=== PATIENT | female | born 1980 | race Caucasian/White ===

== ENCOUNTER 2017-10-01 12:47 | Emergency (ER) | payer MEDICAID ==
[2017-10-01 13:25] LABS: APPEARANCE,URINE Cloudy (CLEAR); BILIRUBIN,URINE Negative (NEGATIVE); COLOR,URINE Yellow (YELLOW); GLUCOSE, URINE (UA) Negative (NEGATIVE); KETONES,URINE Negative (NEGATIVE); LEUKOCYTE ESTERASE ,URINE Trace (NEGATIVE); NITRATE,URINE Negative (NEGATIVE); OCCULT BLOOD,URINE Negative (NEGATIVE); PROTEIN,URINE Negative (NEGATIVE); UROBILINOGEN,URINE 0.2 mg/dL (0.2-1.0)
[2017-10-01 13:29] LABS: RAPID GROUP A STREP NEGATIVE (NEGATIVE)
[2017-10-01 13:30] LABS: HCG,QUAL RESULT NEGATIVE (NEGATIVE)
[2017-10-01 13:42] LABS: BACTERIA,URINE Few /HPF (None Seen); MUCUS,URINE Few LPF (None Seen); RBC,URINE None Seen /HPF (0-1); SQUAMOUS EPITHELIAL CELL,UR Few /HPF (0-2); WBC,URINE 0-1 /HPF (0-1)
== END 2017-10-01 14:04 | disposition home or self-care (01) ==
LOC: EDH 12:47
DX: J06.9 Acute upper respiratory infection, unspecified (principal)
CPT/HCPCS: 81001; 81025; 87804; 87880

== ENCOUNTER → 2021-11-15 | Emergency (ER) | payer MEDICAID, MEDICARE ==
[~2021-11-15] VITALS: Ht 152.4 cm; Wt 68.0 kg
[~2021-11-15] MED LIST: IBUP-1552 PO; KETOROLAC 30MG VIAL (30MG/ML) IVP ONE; LACTATED RINGERS 1000ML 1,000 ML IV ONE
[2021-11-15 14:45] LABS: HEMATOCRIT 36.8 % (36-48); MEAN CORPUSCULAR HEMOGLOBIN 29.3 pg (27.0-33.0); MEAN CORPUSCULAR HGB CONC 33.2 g/dL (32.0-36.0); MEAN CORPUSCULAR VOLUME 88.2 fL (79-99); RED BLOOD CELL COUNT(AUTO) 4.17 MIL/uL (4.00-5.50); RED CELL DISTRIBUTION WIDTH 13.3 % (11.0-15.5); WHITE BLOOD COUNT (AUTO) 9.3 K/uL (4.8-10.8)
[2021-11-15 15:05] LABS: ALANINE AMINOTRANSFERASE 20 U/L (12-78); ALBUMIN 3.9 g/dL (3.5-5.0); ASPARTATE AMINOTRANSFERASE 14 U/L (10-37); CARBON DIOXIDE 27 mmol/L (21-32); CHLORIDE 102 mmol/L (101-111); CREATININE 1.1 mg/dL (0.5-1.5); GLOMERULAR FILTR. RATE CALC 58 mL/min (>60); GLUCOSE,RANDOM 120 mg/dL (70-105); POTASSIUM 4.2 mmol/L (3.5-5.1); SODIUM SERUM 140 mmol/L (136-145); TOTAL PROTEIN, SERUM 7.6 g/dL (6.0-8.3); UREA NITROGEN, BLOOD 16 mg/dL (7-18)
[2021-11-15 15:16] LABS: APPEARANCE,URINE Cloudy (CLEAR); BILIRUBIN,URINE Negative (NEGATIVE); COLOR,URINE Yellow (YELLOW); GLUCOSE, URINE (UA) Negative (NEGATIVE); KETONES,URINE Negative (NEGATIVE); LEUKOCYTE ESTERASE ,URINE Small (NEGATIVE); NITRATE,URINE Negative (NEGATIVE); OCCULT BLOOD,URINE Negative (NEGATIVE); PROTEIN,URINE Negative (NEGATIVE); UROBILINOGEN,URINE 0.2 mg/dL (0.2-1.0)
[2021-11-15 15:46] LABS: BACTERIA,URINE Few /HPF (None Seen); MUCUS,URINE Few LPF (None Seen); RBC,URINE 0-1 /HPF (0-1); SQUAMOUS EPITHELIAL CELL,UR Moderate /HPF (0-2)
[2021-11-15 18:56] VITALS: BP 110/70
== END | disposition home or self-care (01) ==
LOC: EDH 13:30
DX: N94.0 Mittelschmerz (principal); R82.71 Bacteriuria; R73.9 Hyperglycemia, unspecified; Z79.1 Long term (current) use of non-steroidal anti-inflammatories (NSAID)
CPT/HCPCS: 99285; 74176; 96374; 96361; 80053; 84703; 85027; 81001; 36415; J7120; J1885